=== PATIENT | male | born 1970 | race Caucasian/White ===

== ENCOUNTER 2022-04-21 15:39 | Observation (INO) | payer BC, SELFPAY ==
--- NOTE | ~2022-04-21 | CT_ITS ---
EXAMINATION: CT ANGIOGRAM OF THE CHEST WITH AND WITHOUT CONTRAST (CT PULMONARY ANGIOGRAM FOR PE) CLINICAL INFORMATION: Reason for Exam sob?PE COMPARISON: None TECHNIQUE: Prior to contrast administration, noncontrast localization images were obtained. Subsequently, multidetector volumetric imaging was performed from the thoracic inlet to below the diaphragms following the administration of 65 mL Omnipaque 350 intravenous contrast. No contrast reaction reported Sagittal, coronal, and MIP oblique sagittal reformatted images were obtained on the CT workstation, uploaded to PACS, and reviewed. This CT examination was performed using dose optimization techniques as appropriate, variously including the following: *Automated exposure control *Adjustment of mA and/or kV according to patient size (this includes techniques or standardized protocols for targeted exams where dose is matched to indication/reason for exam; i.e. extremities or head) *Use of iterative reconstruction technique Total exam dose-length product 340 mGy-cm FINDINGS: QUALITY OF STUDY/CONTRAST BOLUS: Satisfactory. PULMONARY ARTERIES: No central or segmental pulmonary emboli. THORACIC AORTA: No aneurysm or dissection. LUNG: A few patchy, peripheral nodular foci of airspace consolidation are evident in the lungs, most notably in the peripheral, lateral aspect of the right upper lobe, though also seen to a lesser extent in the left upper, right lower, and right middle lobes. Dependent atelectasis is present at the lung bases. Central airways are clear. No bronchiectasis. PLEURA: No pleural effusion or pneumothorax. MEDIASTINUM: Normal heart size. No pericardial effusion. A right hilar lymph node measures 1.3 cm in short axis, enlarged. No mediastinal lymphadenopathy. No evidence of septal bowing or right heart strain. CHEST WALL/AXILLA: No axillary or internal mammary lymphadenopathy. OSSEOUS STRUCTURES: No acute or suspicious osseous abnormality. UPPER ABDOMEN: Unremarkable. No reflux of contrast into the hepatic veins to suggest elevated right heart pressures. CT/CT angio chest PE protocol IMPRESSION: Small patchy, peripheral nodular foci of consolidation, most notably in the right upper lobe which are favored to be infectious or inflammatory nature. An enlarged 1.2 cm right hilar lymph node is likely reactive. No evidence of pulmonary embolus. VTE: negative
--- NOTE | ~2022-04-21 | XR_ITS ---
EXAMINATION: XR CHEST CLINICAL INFORMATION: Cough COMPARISON: None TECHNIQUE: Frontal view of the chest was obtained. 4:39 PM FINDINGS: No significant abnormality is noted involving the heart, lungs, mediastinum, bony thorax or soft tissues. XR/XR chest 1V IMPRESSION: Unremarkable examination.
--- NOTE | ~2022-04-21 | US_ITS ---
EXAMINATION: US ABDOMEN COMPLETE CLINICAL INFORMATION: Elevated LFTs. COMPARISON: None TECHNIQUE: Real-time imaging of the abdominal viscera. FINDINGS: PANCREAS: Visualized portions unremarkable. ABDOMINAL AORTA: Visualized portions unremarkable. INFERIOR VENA CAVA: Visualized portions unremarkable. LIVER: Unremarkable. GALLBLADDER: Unremarkable. COMMON BILE DUCT: Normal in caliber measuring 0.3 cm in diameter. RIGHT KIDNEY: 11.2 cm. Unremarkable. LEFT KIDNEY: 11.4 cm. Unremarkable. SPLEEN: 11.2 cm. Unremarkable. FREE FLUID: None. US/US abdomen complete IMPRESSION: Unremarkable abdominal ultrasound.
[2022-04-21 15:45] VITALS: BP 132/87; PULSE 92; RESP 18; TEMP 35.7; O2SAT 100; BMI 25.0
--- NOTE | 2022-04-21 15:45 | ECG_ITS ---
Test Reason : cp Blood Pressure : / mmHG Vent. Rate : 086 BPM Atrial Rate : 086 BPM P-R Int : 140 ms QRS Dur : 076 ms QT Int : 352 ms P-R-T Axes : 032 032 043 degrees QTc Int : 421 ms Normal sinus rhythm Low voltage QRS Borderline ECG No previous ECGs available Referred By: Generic ED Physician Electronically Signed By:DESTINI STARKS
--- NOTE | 2022-04-21 16:11 | PC.NURSE ---
During lab draw-pt reported to triage tech I normally pass out with blood draws . Pt then had an episode lasting of moaning, diaphoresis, and staring off into space in chair lasting 1.5 minutes. No head strike. Moaning in response to painful stimuli. triage tech sent to get primer charger and stretcher. 18g rt fa small petechiae noted on left leg.
[2022-04-21 16:17] LABS: MANUAL DIFF FLAG NO
[2022-04-21 16:18] LABS: Basophils Percent Auto 0.1 % (0-2); Eosinophils Percent Auto 0.6 % (0-4); Hemoglobin 13.1 g/dl (14.0-18.0); Imm Gran Abs Auto 0.02 X10*3/uL (0.00-0.03); Imm Gran Pct Auto 0.3 % (0.0-0.4); Lymphocytes Absolute Auto 0.9 X10*3/uL (1.2-4.9); Lymphocytes Percent Auto 12.5 % (20-40); Mean Corpuscular HGB Conc 34.5 g/dl (31.0-36.0); Mean Corpuscular Hemoglobin 29.8 pg (27.0-33.0); Mean Corpuscular Volume 86.6 fL (80.0-98.0); Mean Platelet Volume 10.4 fL (9.4-12.4); Monocytes Absolute Auto 0.7 X10*3/uL (0.1-1.2); Neutrophils Absolute Auto 5.3 x10*3/uL (2.0-8.3); Neutrophils Percent Auto 76.5 % (45-73); Platelet Count 181 X10*3/uL (160-400); Red Blood Count 4.39 X10*6/uL (4.60-5.80)
[2022-04-21 16:25] LABS: D Dimer High Sensitivity 819 NG/ML
[2022-04-21 16:34] VITALS: PULSE 87
[2022-04-21 16:35] LABS: Alanine Aminotransferase 85 U/L (0-40); Albumin Level 3.5 g/dL (3.5-5.0); Alkaline Phosphatase 151 U/L (39-117); Anion Gap 12 (12-20); Aspartate Amino Transferase 112 U/L (5-37); Bilirubin Total 0.3 mg/dL (0.0-1.0); Blood Urea Nitrogen 16 mg/dL (9-16); Calcium 8.2 mg/dL (8.4-10.2); Carbon Dioxide 26 mmol/L (22-29); Chloride 100 mmol/L (96-108); Creatinine Clr Calc Pharmacy 108.5; Estimated Glomerular Filt Rate > 60; Glucose Random 96 mg/dL (60-115); Potassium 3.9 mmol/L (3.3-5.1); Sodium 134 mmol/L (135-145); Total Protein 6.2 g/dL (6.5-8.0)
[2022-04-21 16:39] LABS: COVID-19 Test Negative (Negative)
[2022-04-21 16:40] LABS: IDNOW Serial# 16C4AD1C; Influenza A Negative (Negative); Influenza B2 Negative (Negative)
[2022-04-21 16:50] LABS: Troponin-I High Sensitivity 124.6 ng/L (<3.5-35.0)
--- NOTE | 2022-04-21 17:01 | ED_ITS ---
HPI - Chest Pain General Chief Complaint: Chest Pain Stated Complaint: Pulmonary embolism? Time Seen by Provider: 04/21/22 16:33 Source: patient Mode of arrival: ambulatory Limitations: no limitations History of Present Illness HPI narrative: Patient with recent diagnosis of a non malignant melanoma status post [place] surgery flu from [place] been sick for last 4-5 days with cough low-grade fever had the labs done yesterday which showed elevated D-dimer and proBNP patient denied any leg pain or significant shortness of breath complaining of cough with mucopurulent phlegm and malaise while coming to the ER sitting on the wheelchair patient passed out patient does not remember the whole event but has the vasov agal syncope episodes in the past no seizure activity noticed patient was incontinent of the urine at that time. At this time patient feels weak with poor oral intake all day afebrile saturating 100% on room air no chest pain or palpitation patient just flew from [place] denies any calf pain or swelling Related Data Home Medications Medication Instructions Recorded Confirmed clobetasol 0.05 % topical ointment 1 ea topical BID 04/21/22 04/21/22 minocycline 100 mg capsule 1 cap PO BID 04/21/22 04/21/22 Allergies Allergy/AdvReac Type Severity Reaction Status Date / Time No Known Allergies Allergy Verified 04/21/22 15:50 Review of Systems Review of Systems: Yes all other systems are reviewed and are negative [facility] Past Medical History Medical History (Updated 04/21/22 @ 21:04 by Stoney Davis MD) Melanoma Social History Social History Patient Tobacco Use Status: Never used Tobacco Use of substances other than those prescribed or required for medical reasons: No Advance Directives: No Advance Directives Information Provided: No Physical Exam Vital Signs: Vital Signs: Last Vital Signs Temp 98 F 04/21/22 18:22 Pulse 91 04/21/22 21:41 Resp 18 04/21/22 21:41 BP 100/64 04/21/22 21:41 Pulse Ox 96 04/21/22 21:41 O2 Del Method 04/21/22 21:41 BMI result Body Mass Index 25.0 Appearance: Alert. Oriented X3. No acute distress. Looks sick Eyes: PERRLA, No Nystagmus ENT: Pharynx normal. Oral Mucosa dry Neck: Normal inspection. Neck supple. CVS: Normal heart rate and rhythm. Pulses normal. Respiratory: No respiratory distress. Equal air entry bilateral, no wheezing/rhonchi occasional crackles posteriorly at bases Abdomen: Soft and nontender. Bowel sounds are present, no mass palpable, no CVA tenderness Skin: Skin warm and dry. Normal skin color. Normal skin turgor. Extremities: No lower extremity edema. No calf tenderness Neuro: Oriented X 3. No motor deficit. No sensory deficit.No cerebellar signs , cranial nerves II-XII intact MDM - Chest Pain MDM Narrative Medical decision making narrative: 21:00 Patient with febrile illness with cough with elevated troponin D-dimer sed rate and CRP with normal WBC count workup showed atypical infiltrate bilateral lung field COVID negative influenza negative elevated troponin and BNP without any findings of heart failure or cardiac ischemia EKG without any ischemic changes. Case discussed with Dr. Collier steel erector apprentice advised not to give any treatment for suspected myocarditis he will see the patient morning. Meanwhile patient received doxycycline Zithromax and cefuroxime in the ER for atypical pneumonia enhance respiratory panel was sent. Patient denies any tick bite or Lyme titer was also sent will admit the patient for further evaluation Lab Data Attestation: I reviewed the patient's lab results. Result diagrams: 04/21/22 16:03 04/21/22 16:03 Labs: Lab Results 04/21/22 04/21/22 04/21/22 Range/Units 16:03 16:03 16:03 WBC 7.0 (4.8-10.8) X10*3/uL RBC 4.39 L (4.60-5.80) X10*6/uL Hgb 13.1 L (14.0-18.0) g/dl Hct 38.0 L (42.0-52.0) % MCV 86.6 (80.0-98.0) fL MCH 29.8 (27.0-33.0) pg MCHC 34.5 (31.0-36.0) g/dl RDW 13.0 (11.0-16.0) % Plt Count 181 (160-400) X10*3/uL MPV 10.4 (9.4-12.4) fL Immature Gran % (Auto) 0.3 (0.0-0.4) % Neut % (Auto) 76.5 H (45-73) % Lymph % (Auto) 12.5 L (20-40) % [place] % (Auto) 10.0 (2-11) % Eos % (Auto) 0.6 (0-4) % Baso % (Auto) 0.1 (0-2) % Lymph # (Auto) 0.9 L (1.2-4.9) X10*3/uL [place] # (Auto) 0.7 (0.1-1.2) X10*3/uL Eos # (Auto) 0.0 (0.0-0.4) X10*3/uL Baso # (Auto) 0.0 (0.0-0.2) X10*3/uL Abs Immat Gran (auto) 0.02 (0.00-0.03) X10*3/uL Absolute Neuts (auto) 5.3 (2.0-8.3) x10*3/uL Absolute Nucleated RBC 0.000 (0.0-0.012) X10*3/uL Nucleated RBC % (auto) 0.0 (0.0-0.2) /100WBC ESR (0-15) MM/HR PT (10.0-13.1) SEC INR (0.9-1.1) APTT (24.1-38.0) SEC D-Dimer High Sensitivty NG/ML Sodium 134 L (135-145) mmol/L Potassium 3.9 (3.3-5.1) mmol/L Chloride 100 (96-108) mmol/L Carbon Dioxide 26 (22-29) mmol/L Anion Gap 12 (12-20) BUN 16 (9-16) mg/dL Creatinine 0.90 (0.5-1.4) mg/dL Estim Creat Clear Calc 108.5 Estimated GFR > 60 Random Glucose 96 (60-115) mg/dL Lactic Acid (0.5-2.0) mmol/L Calcium 8.2 L (8.4-10.2) mg/dL Total Bilirubin 0.3 (0.0-1.0) mg/dL AST 112 H (5-37) U/L ALT 85 H (0-40) U/L Alkaline Phosphatase 151 H (39-117) U/L Troponin I High Sens 124.6 H* (<3.5-35.0) ng/L C-Reactive Protein 26.14 H (< or = 0.50) mg/dL B-Natriuretic Peptide 347 H (<100) pg/mL Total Protein 6.2 L (6.5-8.0) g/dL Albumin 3.5 (3.5-5.0) g/dL COVID-19 (LENA) (Negative) COVID-19 Clin Com Influenza Type A (JAMMIE) (Negative) Influenza Type B (JAMMIE) (Negative) Influenza A & B Note 04/21/22 04/21/22 04/21/22 Range/Units 16:03 16:03 16:03 WBC (4.8-10.8) X10*3/uL RBC (4.60-5.80) X10*6/uL Hgb (14.0-18.0) g/dl Hct (42.0-52.0) % MCV (80.0-98.0) fL MCH (27.0-33.0) pg MCHC (31.0-36.0) g/dl RDW (11.0-16.0) % Plt Count (160-400) X10*3/uL MPV (9.4-12.4) fL Immature Gran % (Auto) (0.0-0.4) % Neut % (Auto) (45-73) % Lymph % (Auto) (20-40) % [place] % (Auto) (2-11) % Eos % (Auto) (0-4) % Baso % (Auto) (0-2) % Lymph # (Auto) (1.2-4.9) X10*3/uL [place] # (Auto) (0.1-1.2) X10*3/uL Eos # (Auto) (0.0-0.4) X10*3/uL Baso # (Auto) (0.0-0.2) X10*3/uL Abs Immat Gran (auto) (0.00-0.03) X10*3/uL Absolute Neuts (auto) (2.0-8.3) x10*3/uL Absolute Nucleated RBC (0.0-0.012) X10*3/uL Nucleated RBC % (auto) (0.0-0.2) /100WBC ESR 74 H (0-15) MM/HR PT 12.0 (10.0-13.1) SEC INR 1.0 (0.9-1.1) APTT 36.2 (24.1-38.0) SEC D-Dimer High Sensitivty 819 NG/ML Sodium (135-145) mmol/L Potassium (3.3-5.1) mmol/L Chloride (96-108) mmol/L Carbon Dioxide (22-29) mmol/L Anion Gap (12-20) BUN (9-16) mg/dL Creatinine (0.5-1.4) mg/dL Estim Creat Clear Calc Estimated GFR Random Glucose (60-115) mg/dL Lactic Acid (0.5-2.0) mmol/L Calcium (8.4-10.2) mg/dL Total Bilirubin (0.0-1.0) mg/dL AST (5-37) U/L ALT (0-40) U/L Alkaline Phosphatase (39-117) U/L Troponin I High Sens (<3.5-35.0) ng/L C-Reactive Protein (< or = 0.50) mg/dL B-Natriuretic Peptide (<100) pg/mL Total Protein (6.5-8.0) g/dL Albumin (3.5-5.0) g/dL COVID-19 (LENA) Negative (Negative) COVID-19 Clin Com See Note Influenza Type A (JAMMIE) (Negative) Influenza Type B (JAMMIE) (Negative) Influenza A & B Note 04/21/22 04/21/22 04/21/22 Range/Units 16:04 16:59 19:48 WBC (4.8-10.8) X10*3/uL RBC (4.60-5.80) X10*6/uL Hgb (14.0-18.0) g/dl Hct (42.0-52.0) % MCV (80.0-98.0) fL MCH (27.0-33.0) pg MCHC (31.0-36.0) g/dl RDW (11.0-16.0) % Plt Count (160-400) X10*3/uL MPV (9.4-12.4) fL Immature Gran % (Auto) (0.0-0.4) % Neut % (Auto) (45-73) % Lymph % (Auto) (20-40) % [place] % (Auto) (2-11) % Eos % (Auto) (0-4) % Baso % (Auto) (0-2) % Lymph # (Auto) (1.2-4.9) X10*3/uL [place] # (Auto) (0.1-1.2) X10*3/uL Eos # (Auto) (0.0-0.4) X10*3/uL Baso # (Auto) (0.0-0.2) X10*3/uL Abs Immat Gran (auto) (0.00-0.03) X10*3/uL Absolute Neuts (auto) (2.0-8.3) x10*3/uL Absolute Nucleated RBC (0.0-0.012) X10*3/uL Nucleated RBC % (auto) (0.0-0.2) /100WBC ESR (0-15) MM/HR PT (10.0-13.1) SEC INR (0.9-1.1) APTT (24.1-38.0) SEC D-Dimer High Sensitivty NG/ML Sodium (135-145) mmol/L Potassium (3.3-5.1) mmol/L Chloride (96-108) mmol/L Carbon Dioxide (22-29) mmol/L Anion Gap (12-20) BUN (9-16) mg/dL Creatinine (0.5-1.4) mg/dL Estim Creat Clear Calc Estimated GFR Random Glucose (60-115) mg/dL Lactic Acid 1.2 (0.5-2.0) mmol/L Calcium (8.4-10.2) mg/dL Total Bilirubin (0.0-1.0) mg/dL AST (5-37) U/L ALT (0-40) U/L Alkaline Phosphatase (39-117) U/L Troponin I High Sens 131.0 H* (<3.5-35.0) ng/L C-Reactive Protein (< or = 0.50) mg/dL B-Natriuretic Peptide (<100) pg/mL Total Protein (6.5-8.0) g/dL Albumin (3.5-5.0) g/dL COVID-19 (LENA) (Negative) COVID-19 Clin Com Influenza Type A (JAMMIE) Negative (Negative) Influenza Type B (JAMMIE) Negative (Negative) Influenza A & B Note See Note ECG Data ECG #1: Attestation: I personally reviewed and interpreted this ECG as follows: Interpretation: Normal sinus rhythm heart rate 86 beats per minute low-voltage QRS no interval normal axis no acute ST-T changes no acute ischemia Critical Care Time Critical Care Time Critical Care Time: Yes Total Critical Care Time: 55 Attestation: I spent 55 minutes of critical care, with interventions, assessments, speaking to patient, consultants, and family. Discharge Plan Discharge Clinical Impression: Pneumonia, Myocarditis, Elevated troponin Patient Disposition: Admitted As Inpatient
[2022-04-21] MEDS: iohexoL 350 MG/ML 100 ML INFUS..BTL IV (17:26)
[2022-04-21 17:28] LABS: Lactic Acid 1.2 mmol/L (0.5-2.0)
[2022-04-21 17:43] LABS: B Type Natriuretic Peptide 347 pg/mL (<100)
[2022-04-21] MEDS: cefTRIAXone sodium 1 GM in 0.9 % Sodium Chloride 50 ML IV (17:43)
[2022-04-21] MEDS: 0.9 % Sodium Chloride 1,000 ML 999 ML IV ×2 (17:43→19:27)
[2022-04-21 17:44] VITALS: BP 105/71; PULSE 87; RESP 18; TEMP 37.4; O2SAT 98
[2022-04-21 18:22] VITALS: BP 122/79; PULSE 85; RESP 18; TEMP 36.6; O2SAT 98
[2022-04-21] MEDS: Azithromycin 500 MG in 0.9 % Sodium Chloride 250 ML 125 MG IV (18:45)
[2022-04-21 18:59] LABS: Partial Thromboplastin Time 36.2 SEC (24.1-38.0)
[2022-04-21 19:18] LABS: C Reactive Protein 26.14 mg/dL (< or = 0.50)
[2022-04-21] MEDS: Ketorolac Tromethamine 30 MG/ML VIAL IVPUSH (19:26)
[2022-04-21] MEDS: Acetaminophen 325 MG TABLET 650 MG PO (19:43)
[2022-04-21 19:47] LABS: Erythrocyte Sedimentation Rate 74 MM/HR (0-15)
--- NOTE | 2022-04-21 20:24 | ECG_ITS ---
Test Reason : CHEST PAIN Blood Pressure : / mmHG Vent. Rate : 092 BPM Atrial Rate : 092 BPM P-R Int : 154 ms QRS Dur : 076 ms QT Int : 348 ms P-R-T Axes : 032 022 035 degrees QTc Int : 430 ms Normal sinus rhythm Low voltage QRS Borderline ECG When compared with ECG of 21-APR-2022 15:54, No significant change was found Referred By: Stoney Davis Electronically Signed By:DESTINI STARKS
[2022-04-21] MEDS: methylPREDNISolone Sod Succ 125 MG/2 ML VIAL IVPUSH (21:07)
--- NOTE | 2022-04-21 21:13 | PHA.MEDREC ---
MED REC COMPLETE, NO ISSUES Pharmacy Consult ? Medication Reconciliation Pharmacy has completed the medication reconciliation.
[2022-04-21] MEDS: Doxycycline Hyclate 100 MG in 0.9 % Sodium Chloride 250 ML 166.67 MG IV (21:22)
[2022-04-21 21:41] VITALS: BP 100/64; PULSE 91; RESP 18; O2SAT 96
--- NOTE | 2022-04-21 23:01 | PM.IMHP ---
History of Present Illness Date of Service: 04/21/22 Chief Complaint: cough This is a 51-year-old male with past medical history of non malignant melanoma otherwise no past medical history presents to the hospital with complaints of feeling sick for the past 4-5 days. Patient reports that he just returned from [place] by flight but he has had 4-5 days of cough, low-grade fever in the 99 degrees. He did outpatient workup which showed elevated D-dimer and BNP and therefore was sent to the hospital. Patient denies any chest pain, no abdominal pain nausea or vomiting, no diarrhea constipation, no urinary symptoms. Patient reports no lower extremity 0 pain. He has known numbness tingling or lower extremity or upper extremity weakness. On arrival to the ED patient hemodynamically stable with no significant abnormal vitals Labs are significant for WBC count of 7.0, hemoglobin of 13.1, hematocrit 38.0 ESR of 74 AST of 112, ALT of 85, alk-phos of 151, troponin of 120 for increased to 131 on repeat, BNP of 347, CRP of 26.[address] angiogram showed negative ETA but there is consolidation, most notably in the right upper lobe which was favored to be infectious. EKG showed normal sinus rhythm Given the elevated troponin as well as BNP, cardiology wanted patient to be admitted for further evaluation Review of Systems Review of Systems: Yes all other systems are reviewed and are negative [facility] Medical History (Updated 04/22/22 @ 07:09 by Joy Irwin MD) Melanoma Family History (Updated 04/22/22 @ 07:07 by Joy Irwin MD) Other No family history of coronary artery disease Surgical History (Updated 04/22/22 @ 07:08 by Joy Irwin MD) No pertinent past surgical history Social History Patient Tobacco Use Status: Never used Tobacco Use of substances other than those prescribed or required for medical reasons: No Advance Directives: No Advance Directives Information Provided: No Meds Allergies Allergy/AdvReac Type Severity Reaction Status Date / Time No Known Allergies Allergy Verified 04/22/22 03:00 Home Medications Medication Instructions Recorded Confirmed Last Taken Type clobetasol 0.05 % topical ointment 1 ea topical BID 04/21/22 04/21/22 Unknown History minocycline 100 mg capsule 1 cap PO BID 04/21/22 04/21/22 04/21/22 History Physical Exam Vital Signs and Narrative: Vital Signs: Last Vital Signs Temp 98 F 04/21/22 18:22 Pulse 91 04/21/22 21:41 Resp 18 04/21/22 21:41 BP 100/64 04/21/22 21:41 Pulse Ox 96 04/21/22 21:41 O2 Del Method 04/21/22 21:41 BMI result Body Mass Index 25.0 Const: General: cooperative and no acute distress Orientation/consciousness: patient oriented x3 Eyes: General: appearance normal, both eyes and all related structures Pupils: Equal, round and reactive pupils present Resp: Other: crackles on the right Effort & Inspection: normal respiratory effort Cardio: Rate: regular rate Rhythm: regular rhythm GI: Palpation (GI): Soft to palpation Auscultation: normal bowel sounds Skin: General skin exam: no rashes or lesions noted Neuro: General: patient oriented x3 Cranial nerves: Yes Equal, round and reactive pupils present Cognition (Neuro): normal cognition Extrem: General: Yes normal to inspection and Yes no pedal edema Results Labs CBC and Chem 7: 04/21/22 16:03 04/21/22 16:03 Labs: Laboratory Results - last 24 hr 04/21/22 04/21/22 04/21/22 16:03 16:03 16:03 MCV 86.6 MCH 29.8 MCHC 34.5 RDW 13.0 Plt Count 181 MPV 10.4 Immature Gran % (Auto) 0.3 Neut % (Auto) 76.5 H Lymph % (Auto) 12.5 L [place] % (Auto) 10.0 Eos % (Auto) 0.6 Baso % (Auto) 0.1 Lymph # (Auto) 0.9 L [place] # (Auto) 0.7 Eos # (Auto) 0.0 Baso # (Auto) 0.0 Abs Immat Gran (auto) 0.02 Absolute Neuts (auto) 5.3 Absolute Nucleated RBC 0.000 Nucleated RBC % (auto) 0.0 ESR PT INR APTT D-Dimer High Sensitivty Anion Gap 12 Estim Creat Clear Calc 108.5 Estimated GFR > 60 Random Glucose 96 Lactic Acid Calcium 8.2 L Total Bilirubin 0.3 AST 112 H ALT 85 H Alkaline Phosphatase 151 H Troponin I High Sens 124.6 H* C-Reactive Protein 26.14 H B-Natriuretic Peptide 347 H Total Protein 6.2 L Albumin 3.5 COVID-19 (LENA) COVID-19 Clin Com Influenza Type A (JAMMIE) Influenza Type B (JAMMIE) Influenza A & B Note 04/21/22 04/21/22 04/21/22 16:03 16:03 16:03 MCV MCH MCHC RDW Plt Count MPV Immature Gran % (Auto) Neut % (Auto) Lymph % (Auto) [place] % (Auto) Eos % (Auto) Baso % (Auto) Lymph # (Auto) [place] # (Auto) Eos # (Auto) Baso # (Auto) Abs Immat Gran (auto) Absolute Neuts (auto) Absolute Nucleated RBC Nucleated RBC % (auto) ESR 74 H PT 12.0 INR 1.0 APTT 36.2 D-Dimer High Sensitivty 819 Anion Gap Estim Creat Clear Calc Estimated GFR Random Glucose Lactic Acid Calcium Total Bilirubin AST ALT Alkaline Phosphatase Troponin I High Sens C-Reactive Protein B-Natriuretic Peptide Total Protein Albumin COVID-19 (LENA) Negative COVID-19 Clin Com See Note Influenza Type A (JAMMIE) Influenza Type B (JAMMIE) Influenza A & B Note 04/21/22 04/21/22 04/21/22 16:04 16:59 19:48 MCV MCH MCHC RDW Plt Count MPV Immature Gran % (Auto) Neut % (Auto) Lymph % (Auto) [place] % (Auto) Eos % (Auto) Baso % (Auto) Lymph # (Auto) [place] # (Auto) Eos # (Auto) Baso # (Auto) Abs Immat Gran (auto) Absolute Neuts (auto) Absolute Nucleated RBC Nucleated RBC % (auto) ESR PT INR APTT D-Dimer High Sensitivty Anion Gap Estim Creat Clear Calc Estimated GFR Random Glucose Lactic Acid 1.2 Calcium Total Bilirubin AST ALT Alkaline Phosphatase Troponin I High Sens 131.0 H* C-Reactive Protein B-Natriuretic Peptide Total Protein Albumin COVID-19 (LENA) COVID-19 Clin Com Influenza Type A (JAMMIE) Negative Influenza Type B (JAMMIE) Negative Influenza A & B Note See Note Imaging Radiologist's Impressions: Impressions Chest X-Ray 04/21/22 16:48 IMPRESSION: Unremarkable examination. Chest CTA 04/21/22 17:42 IMPRESSION: Small patchy, peripheral nodular foci of consolidation, most notably in the right upper lobe which are favored to be infectious or inflammatory nature. An enlarged 1.2 cm right hilar lymph node is likely reactive. No evidence of pulmonary embolus. VTE: negative Assessment and Plan (1) Pneumonia: Status: Acute (2) Elevated troponin: Status: Acute (3) Elevated brain natriuretic peptide (BNP) level: Status: Acute Plan 51-year-old male with no significant past medical history of presents to the hospital with cough found to have pneumonia as well as elevated troponin # acute pneumonia - community-acquired - will treat with IV antibiotics - follow cultures # elevated troponin - no EKG changes, no chest pain - concern for possible myocarditis? - cardiology was consulted by ED physician, recommends admission for further evaluation - will obtain echocardiogram # elevated BNP - no evidence of volume overload - echocardiogram - cardiology consult DVT prophylaxis: Early ambulation Quality Stroke Does the patient have a stroke diagnosis?: No VTE Prior VTE?: No VTE Risk Level:: Medical - low VTE Device Contraindication: Treatment Not Indicated VTE Drug Contraindication: Treatment Not Indicated
[2022-04-21] MEDS: 0.9 % Sodium Chloride Flush 3 ML SYRINGE IVFLUSH (23:15)
[2022-04-22 02:00] VITALS: BP 114/75; PULSE 73; RESP 15; TEMP 36.8; O2SAT 96
[2022-04-22 06:00] VITALS: BMI 25.6
--- NOTE | 2022-04-22 07:00 | CA_ITS ---
Transthoracic Echocardiogram Patient (Last, First, Middle): Floyd Rodgers, Gender: Male Date of : 1970 Age: 51 Procedure Date: 04/22/2022 Procedure Type: Transthoracic Echocardiogram Location: ER Height: 185.42 cm Weight: 86.18 kg BSA: 2.11 m2 Heart Rate: bpm BP: 118 / 73 mmHg Chart Changer: Referring MD: Joy Irwin MD Symptoms: CHF ? , elevated trop Study Quality: Good ECG Rhythm: Sinus Conclusions: - The left ventricular systolic function is low normal. The visually estimated ejection fraction is between 50-55%. - No obvious valvular pathology seen on this study. Findings Procedure Information Contrast agent, definity, is being given per protocol without apparent complications. Left Ventricle Normal left ventricular cavity size. There is mildly increased left ventricular wall thickness. The left ventricular systolic function is low normal. The visually estimated ejection fraction is between 50-55%. There is no evidence of regional wall motion abnormalities. Diastolic function is normal for age. Right Ventricle Normal right ventricular cavity size and systolic function. Atria Both atria are normal in size. Aortic Valve There is a normal trileaflet aortic valve. There is no aortic valve stenosis. There is no aortic valve regurgitation. Mitral Valve The mitral valve appears normal. There is trace mitral valve regurgitation. There is no mitral valve stenosis. Pulmonic Valve The pulmonic valve is likely normal. Tricuspid Valve There is trace tricuspid valve regurgitation. The pulmonary artery systolic pressure is normal. Great Vessels The aortic annulus, sinuses of valsalva, and asc aorta are normal in size. Venous The inferior vena cava is normal in size and collapses greater than 50% with inspiration. Pericardium/Pleural There is no evidence of pericardial effusion. Prior Study Comparison No prior study available for comparison. Recommendations, Care & Conclusions No obvious valvular pathology seen on this study. Measurements 2D Linear Measurements IVSd: 1.12 0.6-0.9/0.6-1.0 cm LVIDd: 4.69 3.9-5.3/4.2-5.9 cm LVIDd Index: 2.22 2.4-3.2/2.2-3.1 cm/m2 LVIDs: 3.16 2.0-3.6 cm LVPWd: 1.13 0.7-1.1 cm Ao Root: 3.80 2.1-3.5 cm LA Diam: 3.40 2.7-3.8/3.0-4.0 cm LAIDs Index: 1.61 1.5-2.3 cm/m2 LV Mass: 240.34 67-162/88-224 g LV Mass Index: 113.90 43-95/49-115 g/m2 LVOT Diam: 2.30 3.0+(-)1.3 cm 2D Systolic Function EF 4C: 55.70 >55% EF 2C: 57.60 >55% EF BiP: 54.80 >55% Mitral Valve MV Pk E: 0.83 MV PK A: 0.94 MV Decel Time: 139.00 E/A: 0.90 E'Lateral: 8.70 E'Medial: 8.16 E/E' Med: 10.20 E/E' Lat: 9.60 PHT: 41.00 MVA PHT: 5.37 Decel [place]: 5.99 Aortic Valve AoV Pk Luke: 1.31 AoV Mn Luke: 0.91 AoV VTI: 0.31 AoV Pk Grad: 7.00 Aov Mn Grad: 4.00 AYLIN Cont.VTI: 3.05 LVOT LVOT Pk Luke: 0.98 LVOT Mn Luke: 0.69 LVOT VTI: 0.23 LVOT Pk Grad: 4.00 LVOT Mn Grad: 2.00 LVOT Diam: 2.30 LVOT Area: 4.15 Diastolic Function MV Pk E: 0.83 MV Pk A: 0.94 E/A: 0.90 E'Medial: 8.16 E/E' Med: 10.20 E' Laterial: 8.70 E/E' Lat: 9.60 Right Ventricle TAPSE (mm): 28.00 TVS' Luke: 12.00 Tricuspid Valve TR Pk Luke: 2.22 TR Pk Grad: 20.00 RA Press: 3.00 RVSP: 23.00 Great Vessels Aorta Ao Root-2D: 3.80 2.0-3.7 cm Ao Asc: 3.30 2.1-3.4 cm Pulmonary Valve PV Pk Luke: 0.99 Peak PV Grad: 4.00 Updated in Other Vendor System with Status of Final Matty Collier MD electronically signed on 04/22/2022 1:55:45 PM with status of Final
[2022-04-22 07:25] LABS: MANUAL DIFF FLAG NO
[2022-04-22 07:27] LABS: Basophils Percent Auto 0.2 % (0-2); Hematocrit 37.1 % (42.0-52.0); Hemoglobin 12.9 g/dl (14.0-18.0); Imm Gran Abs Auto 0.02 X10*3/uL (0.00-0.03); Imm Gran Pct Auto 0.3 % (0.0-0.4); Lymphocytes Absolute Auto 0.6 X10*3/uL (1.2-4.9); Lymphocytes Percent Auto 10.1 % (20-40); Mean Corpuscular HGB Conc 34.8 g/dl (31.0-36.0); Mean Corpuscular Hemoglobin 30.2 pg (27.0-33.0); Mean Corpuscular Volume 86.9 fL (80.0-98.0); Mean Platelet Volume 10.3 fL (9.4-12.4); Monocytes Absolute Auto 0.2 X10*3/uL (0.1-1.2); Monocytes Percent Auto 2.4 % (2-11); Neutrophils Absolute Auto 5.4 x10*3/uL (2.0-8.3); Platelet Count 179 X10*3/uL (160-400); Red Blood Count 4.27 X10*6/uL (4.60-5.80); Red Cell Distribution Width 13.2 % (11.0-16.0); White Blood Count 6.2 X10*3/uL (4.8-10.8)
[2022-04-22 07:41] LABS: Anion Gap 13 (12-20); Blood Urea Nitrogen 15 mg/dL (9-16); Carbon Dioxide 20 mmol/L (22-29); Chloride 108 mmol/L (96-108); Creatinine Clr Calc Pharmacy 123.6; Estimated Glomerular Filt Rate > 60; Glucose Random 159 mg/dL (60-115); Potassium 4.2 mmol/L (3.3-5.1); Sodium 137 mmol/L (135-145)
[2022-04-22] MEDS: 0.9 % Sodium Chloride Flush 3 ML SYRINGE IVFLUSH ×3 (07:52→23:56)
[2022-04-22 08:39] LABS: Alanine Aminotransferase 117 U/L (0-40); Albumin Level 3.2 g/dL (3.5-5.0); Alkaline Phosphatase 209 U/L (39-117); Aspartate Amino Transferase 110 U/L (5-37); Bilirubin Direct 0.2 mg/dL (0.0-0.5); Bilirubin Total 0.7 mg/dL (0.0-1.0); Total Protein 5.8 g/dL (6.5-8.0)
--- NOTE | 2022-04-22 09:59 | PM.CNCAR ---
History of Present Illness History of Present Illness Date of Service: 04/22/22 Chief complaint: pneumonia, elevated inflammatory markers Narrative: This is a cardiology consultation regarding elevated troponins. Patient does not have any known cardiac issues. No history of any coronary diseas,e myocardial infarction or cardiomyopathy or in fact anything cardiac related in the past. He lives in [place] and came here to visit his mother. Even before he started, he was not feeling good and was having some fevers. Then apparently, he had some outpatient test which showed D-dimer send BNP which were abnormal and hence he was sent here. He has cough and whenever he coughs, he gets pleuritic chest pains. However, he does not have any anginal-type symptoms. Some tiredness and exertion from the fever itself. Some labored breathing. While being worked up in the ER, he also had elevated troponins. Hence thought to have possibly myocarditis. Subsequently admitted. Overall, feverish and has constitutional symptoms and pleuritic chest pain from cough but otherwise feels okay. Review of Systems Review of Systems: Yes all other systems are reviewed and are negative Constitutional: Constitutional: Reports as per HPI, Reports fatigue, Reports fever(s) and Reports weakness Eyes: Eyes: Reports as per HPI ENT: Reports as per HPI Cardiovascular: Cardiovascular: Reports as per HPI, Denies acrocyanosis, Denies cool extremities, Denies chest pain, Denies leg edema, Denies lightheadedness, Denies palpitations and Reports dyspnea on exertion Respiratory: Respiratory: Reports as per HPI, Reports no additional respiratory complaints, Reports cough, Reports pain with cough and Reports dyspnea on exertion Gastrointestinal: Gastrointestinal: Reports as per HPI and Reports no additional gastrointestinal complaints Genitourinary: Genitourinary: Reports no additional male genitourinary complaints and Reports as per HPI Musculoskeletal: Musculoskeletal: Reports no additional musculoskeletal complaints and Reports as per HPI Integumentary/Breasts: Skin/Breast: Reports system reviewed and no additional complaints, except as docu Neurologic: Reports system reviewed and no additional complaints, except as documented, Reports as per HPI and Reports weakness Psychiatric: Psychiatric: Reports no additional psychiatric complaints and Reports as per HPI Endocrine: Endocrine: Reports no additional endocrine complaints, Reports as per HPI, Reports fatigue and Denies palpitations Hematologic/Lymphatic: Hematologic/Lymphatic: Reports no additional hematologic/lymphatic complaints and Reports as per HPI Allergic/Immunologic: Allergic/Immunologic: Reports no additional allergic/immunologic complaints and Reports as per [facility] Past Medical History Medical History (Updated 04/22/22 @ 07:09 by Joy Irwin MD) Melanoma Family History Family History (Updated 04/22/22 @ 10:04 by Matty Collier MD) Father Myocardial infarct Surgical History Surgical History (Updated 04/22/22 @ 07:08 by Joy Irwin MD) No pertinent past surgical history Social History Social History Patient Tobacco Use Status: Never used Tobacco Use of substances other than those prescribed or required for medical reasons: No Advance Directives: No Advance Directives Information Provided: No Meds Allergies Allergy/AdvReac Type Severity Reaction Status Date / Time No Known Allergies Allergy Verified 04/22/22 03:00 Active Medications: Current Medications Acetaminophen (Acetaminophen 325 Mg Tablet) 650 mg PO Q6H PRN PRN Reason: Pain, Mild (Pain Scale 1-3) Benzonatate (Benzonatate 100 Mg Capsule) 100 mg PO TID PRN PRN Reason: Cough Docusate Sodium (Docusate Sodium 100 Mg Capsule) 100 mg PO DAILY PRN PRN Reason: Constipation Ceftriaxone Sodium 1 gm/ (Sodium Chloride) 50 mls @ 100 mls/hr IV Q24H NESTOR Azithromycin 500 mg/ Sodium (Chloride) 250 mls @ 125 mls/hr IV Q24H NESTOR Ondansetron HCl (Ondansetron Hcl 4 Mg/2 Ml Vial) 4 mg IVPUSH Q8H PRN PRN Reason: Nausea and Vomiting Sodium Chloride (0.9 % Sodium Chloride Flush 3 Ml Syringe) 3 ml IVFLUSH QSHIFT [facility] Last Admin: 04/22/22 07:52 Dose: 3 ml Home Medications Medication Instructions Recorded Confirmed Last Taken Type clobetasol 0.05 % topical ointment 1 ea topical BID 04/21/22 04/21/22 Unknown History minocycline 100 mg capsule 1 cap PO BID 04/21/22 04/21/22 04/21/22 History Physical Exam Vital Signs: Vital Signs: Last Vital Signs Temp 98.2 F 04/22/22 02:00 Pulse 73 04/22/22 02:00 Resp 15 04/22/22 02:00 BP 114/75 04/22/22 02:00 Pulse Ox 96 04/22/22 02:00 O2 Del Method 04/22/22 02:00 BMI result Body Mass Index 25.0 Const: General: cooperative, comfortable, no acute distress, well developed, alert, awake, Physically active, ill appearing and tired appearing Orientation/consciousness: patient oriented x3 HEENT: Other: Unremarkable Head: Yes normal to inspection Neck: Neck: Yes normal visual inspection Chest: Chest palpation & inspection: normal inspection of the chest Resp: Other: Minimal crackles. Cardio: Palpation: normal PMI Heart sounds: S1 normal heart sound present, S2 normal heart sound present, no gallops, no murmurs and no rubs GI: Palpation (GI): Soft to palpation Back/Spine/Pelvis: Other: unremarkable Skin: General skin exam: no rashes or lesions noted Neuro: General: patient oriented x3 Extrem: General: Yes normal to inspection Psych: Mental Status: mental status grossly normal Objective Labs and Meds Result diagrams: 04/22/22 07:20 04/22/22 07:20 Lab results: Laboratory Results - last 24 hr 04/21/22 04/21/22 04/21/22 16:03 16:03 16:03 WBC 7.0 RBC 4.39 L Hgb 13.1 L Hct 38.0 L MCV 86.6 MCH 29.8 MCHC 34.5 RDW 13.0 Plt Count 181 MPV 10.4 Immature Gran % (Auto) 0.3 Neut % (Auto) 76.5 H Lymph % (Auto) 12.5 L [place] % (Auto) 10.0 Eos % (Auto) 0.6 Baso % (Auto) 0.1 Lymph # (Auto) 0.9 L [place] # (Auto) 0.7 Eos # (Auto) 0.0 Baso # (Auto) 0.0 Abs Immat Gran (auto) 0.02 Absolute Neuts (auto) 5.3 Absolute Nucleated RBC 0.000 Nucleated RBC % (auto) 0.0 ESR PT INR APTT D-Dimer High Sensitivty Sodium 134 L Potassium 3.9 Chloride 100 Carbon Dioxide 26 Anion Gap 12 BUN 16 Creatinine 0.90 Estim Creat Clear Calc 108.5 Estimated GFR > 60 Random Glucose 96 Lactic Acid Calcium 8.2 L Total Bilirubin 0.3 Direct Bilirubin AST 112 H ALT 85 H Alkaline Phosphatase 151 H Troponin I High Sens 124.6 H* C-Reactive Protein 26.14 H B-Natriuretic Peptide 347 H Total Protein 6.2 L Albumin 3.5 COVID-19 (LENA) COVID-19 Clin Com Influenza Type A (JAMMIE) Influenza Type B (JAMMIE) Influenza A & B Note 04/21/22 04/21/22 04/21/22 16:03 16:03 16:03 WBC RBC Hgb Hct MCV MCH MCHC RDW Plt Count MPV Immature Gran % (Auto) Neut % (Auto) Lymph % (Auto) [place] % (Auto) Eos % (Auto) Baso % (Auto) Lymph # (Auto) [place] # (Auto) Eos # (Auto) Baso # (Auto) Abs Immat Gran (auto) Absolute Neuts (auto) Absolute Nucleated RBC Nucleated RBC % (auto) ESR 74 H PT 12.0 INR 1.0 APTT 36.2 D-Dimer High Sensitivty 819 Sodium Potassium Chloride Carbon Dioxide Anion Gap BUN Creatinine Estim Creat Clear Calc Estimated GFR Random Glucose Lactic Acid Calcium Total Bilirubin Direct Bilirubin AST ALT Alkaline Phosphatase Troponin I High Sens C-Reactive Protein B-Natriuretic Peptide Total Protein Albumin COVID-19 (LENA) Negative COVID-19 Clin Com See Note Influenza Type A (JAMMIE) Influenza Type B (JAMMIE) Influenza A & B Note 04/21/22 04/21/22 04/21/22 16:04 16:59 19:48 WBC RBC Hgb Hct MCV MCH MCHC RDW Plt Count MPV Immature Gran % (Auto) Neut % (Auto) Lymph % (Auto) [place] % (Auto) Eos % (Auto) Baso % (Auto) Lymph # (Auto) [place] # (Auto) Eos # (Auto) Baso # (Auto) Abs Immat Gran (auto) Absolute Neuts (auto) Absolute Nucleated RBC Nucleated RBC % (auto) ESR PT INR APTT D-Dimer High Sensitivty Sodium Potassium Chloride Carbon Dioxide Anion Gap BUN Creatinine Estim Creat Clear Calc Estimated GFR Random Glucose Lactic Acid 1.2 Calcium Total Bilirubin Direct Bilirubin AST ALT Alkaline Phosphatase Troponin I High Sens 131.0 H* C-Reactive Protein B-Natriuretic Peptide Total Protein Albumin COVID-19 (LENA) COVID-19 Clin Com Influenza Type A (JAMMIE) Negative Influenza Type B (JAMMIE) Negative Influenza A & B Note See Note 04/22/22 04/22/22 07:20 07:20 WBC 6.2 RBC 4.27 L Hgb 12.9 L Hct 37.1 L MCV 86.9 MCH 30.2 MCHC 34.8 RDW 13.2 Plt Count 179 MPV 10.3 Immature Gran % (Auto) 0.3 Neut % (Auto) 87.0 H Lymph % (Auto) 10.1 L [place] % (Auto) 2.4 Eos % (Auto) 0.0 Baso % (Auto) 0.2 Lymph # (Auto) 0.6 L [place] # (Auto) 0.2 Eos # (Auto) 0.0 Baso # (Auto) 0.0 Abs Immat Gran (auto) 0.02 Absolute Neuts (auto) 5.4 Absolute Nucleated RBC 0.000 Nucleated RBC % (auto) 0.0 ESR PT INR APTT D-Dimer High Sensitivty Sodium 137 Potassium 4.2 Chloride 108 Carbon Dioxide 20 L Anion Gap 13 BUN 15 Creatinine 0.79 Estim Creat Clear Calc 123.6 Estimated GFR > 60 Random Glucose 159 H D Lactic Acid Calcium 8.0 L Total Bilirubin 0.7 Direct Bilirubin 0.2 AST 110 H ALT 117 H Alkaline Phosphatase 209 H D Troponin I High Sens C-Reactive Protein B-Natriuretic Peptide Total Protein 5.8 L Albumin 3.2 L COVID-19 (LENA) COVID-19 Clin Com Influenza Type A (JAMMIE) Influenza Type B (JAMMIE) Influenza A & B Note ECG Interpretation: EKG with sinus rhythm at 86/Min; no significant ST-T changes; low-voltage QRS complexes. Repeat EKG is similar. Imaging Radiologist's impression: Impressions Chest X-Ray 04/21/22 16:48 IMPRESSION: Unremarkable examination. Chest CTA 04/21/22 17:42 IMPRESSION: Small patchy, peripheral nodular foci of consolidation, most notably in the right upper lobe which are favored to be infectious or inflammatory nature. An enlarged 1.2 cm right hilar lymph node is likely reactive. No evidence of pulmonary embolus. VTE: negative Assessment and Plan (1) Myocarditis: Status: Acute (2) Elevated troponin: Status: Acute (3) Elevated brain natriuretic peptide (BNP) level: Status: Acute Plan Pertinent data reviewed. High sensitivity troponins are 124 and 131. Cardiac BNP 347. ESR and CRP are elevated. LFTs are also abnormal. Chest CT reported to have pulmonary consolidation from infectious or inflammatory nature. Reactive lymph node. No pulmonary embolism. Overall, elevated cardiac BNP and troponins could be from myocarditis. He has likely some underlying infection viral or otherwise but not yet identified. No specific management for the myocarditis itself. Treatment should be focused on the underlying cause of infection. Otherwise he will need echocardiogram. Will try to see if sales operations assistant refrigeration service technician is able to come. If not, possibly Sunday if he still in the hospital. Procedures Date of Service Date of Service: 04/22/22
--- NOTE | 2022-04-22 10:20 | PC.NURSE ---
this web content writer assumed care of this pt at 1015. pt alert and oriented, vss. pt transferred to overflow unit with his mother at his bedside.
[2022-04-22 11:20] VITALS: BP 118/73; PULSE 82; RESP 14; O2SAT 95
--- NOTE | 2022-04-22 11:43 | MHC.CM.PN ---
Patient [place] out of state and is visiting here. He is fully independent and lives in his home w/his and children. No prior services or nor equipment. Drives. At time of D/C readiness, plan is to return to family he is visiting via family. CM to follow.
--- NOTE | 2022-04-22 12:01 | PC.NURSE ---
abdominal ultrasound will be done later this afternoon because pt ate breakfast. Dr. Irwin simeon.
[2022-04-22 14:10] LABS: C Reactive Protein 23.83 mg/dL (< or = 0.50)
[2022-04-22] MEDS: Acetaminophen 325 MG TABLET 650 MG PO (15:26)
[2022-04-22 16:00] VITALS: BP 126/78; PULSE 90; RESP 20; TEMP 36.3; O2SAT 96
--- NOTE | 2022-04-22 16:08 | HO.PM.IMPN ---
Subjective Subjective Date of Service: 04/22/22 Interval History: pneumonia ,myocarditis Review of Systems Shortness of breath seems improving He is feeling 6 from at least 5-6 days Physical Exam Vital Signs: Vital Signs: Last Vital Signs Temp 98.2 F 04/22/22 02:00 Pulse 82 04/22/22 11:20 Resp 14 04/22/22 11:20 BP 118/73 04/22/22 11:20 Pulse Ox 95 04/22/22 11:20 O2 Del Method 04/22/22 11:20 BMI result Body Mass Index 25.0 Appearance: Alert.? Oriented X3. cvs: rrr, [id number] , no murmur. res:diminshed breath sounds , has few cracles at bases. abd: no rebound or guarding ,nt, bs present. ext pulses present , no cyanosis . neuro: axo3 , nonfocal. Objective Data Active Medications Acetaminophen (Acetaminophen 325 Mg Tablet) 650 mg PO Q6H PRN PRN Reason: Pain, Mild (Pain Scale 1-3) Last Admin: 04/22/22 15:26 Dose: 650 mg Documented By: NORMAN Benzonatate (Benzonatate 100 Mg Capsule) 100 mg PO TID PRN PRN Reason: Cough Docusate Sodium (Docusate Sodium 100 Mg Capsule) 100 mg PO DAILY PRN PRN Reason: Constipation Ceftriaxone Sodium 1 gm/ (Sodium Chloride) 50 mls @ 100 mls/hr IV Q24H NESTOR Azithromycin 500 mg/ Sodium (Chloride) 250 mls @ 125 mls/hr IV Q24H NESTOR Ondansetron HCl (Ondansetron Hcl 4 Mg/2 Ml Vial) 4 mg IVPUSH Q8H PRN PRN Reason: Nausea and Vomiting Sodium Chloride (0.9 % Sodium Chloride Flush 3 Ml Syringe) 3 ml IVFLUSH QSHIFT NESTOR Last Admin: 04/22/22 07:52 Dose: 3 ml Documented By: JUAN ALBERTO Labs CBC & Chem 7: 04/22/22 07:20 04/22/22 07:20 Labs: Laboratory Results - last 24 hr 04/21/22 04/21/22 04/21/22 16:03 16:03 16:03 MCV 86.6 MCH 29.8 MCHC 34.5 RDW 13.0 Plt Count 181 MPV 10.4 Immature Gran % (Auto) 0.3 Neut % (Auto) 76.5 H Lymph % (Auto) 12.5 L [place] % (Auto) 10.0 Eos % (Auto) 0.6 Baso % (Auto) 0.1 Lymph # (Auto) 0.9 L [place] # (Auto) 0.7 Eos # (Auto) 0.0 Baso # (Auto) 0.0 Abs Immat Gran (auto) 0.02 Absolute Neuts (auto) 5.3 Absolute Nucleated RBC 0.000 Nucleated RBC % (auto) 0.0 ESR PT INR APTT D-Dimer High Sensitivty Anion Gap 12 Estim Creat Clear Calc 108.5 Estimated GFR > 60 Random Glucose 96 Lactic Acid Calcium 8.2 L Total Bilirubin 0.3 Direct Bilirubin AST 112 H ALT 85 H Alkaline Phosphatase 151 H Troponin I High Sens 124.6 H* C-Reactive Protein 26.14 H B-Natriuretic Peptide 347 H Total Protein 6.2 L Albumin 3.5 Respiratory Panel Roy Adenovirus (Rapid PCR) B.pert (TEM-PCR) B.parapertussis DNA PCR C. pneumoniae DNA (PCR) Coronavirus OC43 (PCR) Coronavirus HKU1 (PCR) Coronavirus 229E (PCR) COVID-19 (LENA) COVID-19 Clin Com Coronavirus NL63 (PCR) Human Metapneumovir PCR Influenza Type A (JAMMIE) Influenza A (RT-PCR) Influenza Type B (JAMMIE) Influenza B (RT-PCR) Influenza A & B Note M. pneumoniae (PCR) Parainfluenza 1 (PCR) Parainfluenza 2 (PCR) Parainfluenza 3 (PCR) Parainfluenza 4 (PCR) RSV (PCR) Entero/Rhino (PCR) SARS-CoV-2 RNA (RT-PCR) 04/21/22 04/21/22 04/21/22 16:03 16:03 16:03 MCV MCH MCHC RDW Plt Count MPV Immature Gran % (Auto) Neut % (Auto) Lymph % (Auto) [place] % (Auto) Eos % (Auto) Baso % (Auto) Lymph # (Auto) [place] # (Auto) Eos # (Auto) Baso # (Auto) Abs Immat Gran (auto) Absolute Neuts (auto) Absolute Nucleated RBC Nucleated RBC % (auto) ESR 74 H PT 12.0 INR 1.0 APTT 36.2 D-Dimer High Sensitivty 819 Anion Gap Estim Creat Clear Calc Estimated GFR Random Glucose Lactic Acid Calcium Total Bilirubin Direct Bilirubin AST ALT Alkaline Phosphatase Troponin I High Sens C-Reactive Protein B-Natriuretic Peptide Total Protein Albumin Respiratory Panel Roy Adenovirus (Rapid PCR) B.pert (TEM-PCR) B.parapertussis DNA PCR C. pneumoniae DNA (PCR) Coronavirus OC43 (PCR) Coronavirus HKU1 (PCR) Coronavirus 229E (PCR) COVID-19 (LENA) Negative COVID-19 Clin Com See Note Coronavirus NL63 (PCR) Human Metapneumovir PCR Influenza Type A (JAMMIE) Influenza A (RT-PCR) Influenza Type B (JAMMIE) Influenza B (RT-PCR) Influenza A & B Note M. pneumoniae (PCR) Parainfluenza 1 (PCR) Parainfluenza 2 (PCR) Parainfluenza 3 (PCR) Parainfluenza 4 (PCR) RSV (PCR) Entero/Rhino (PCR) SARS-CoV-2 RNA (RT-PCR) 04/21/22 04/21/22 04/21/22 16:04 16:59 19:48 MCV MCH MCHC RDW Plt Count MPV Immature Gran % (Auto) Neut % (Auto) Lymph % (Auto) [place] % (Auto) Eos % (Auto) Baso % (Auto) Lymph # (Auto) [place] # (Auto) Eos # (Auto) Baso # (Auto) Abs Immat Gran (auto) Absolute Neuts (auto) Absolute Nucleated RBC Nucleated RBC % (auto) ESR PT INR APTT D-Dimer High Sensitivty Anion Gap Estim Creat Clear Calc Estimated GFR Random Glucose Lactic Acid 1.2 Calcium Total Bilirubin Direct Bilirubin AST ALT Alkaline Phosphatase Troponin I High Sens 131.0 H* C-Reactive Protein B-Natriuretic Peptide Total Protein Albumin Respiratory Panel Roy Adenovirus (Rapid PCR) B.pert (TEM-PCR) B.parapertussis DNA PCR C. pneumoniae DNA (PCR) Coronavirus OC43 (PCR) Coronavirus HKU1 (PCR) Coronavirus 229E (PCR) COVID-19 (LENA) COVID-19 Clin Com Coronavirus NL63 (PCR) Human Metapneumovir PCR Influenza Type A (JAMMIE) Negative Influenza A (RT-PCR) Influenza Type B (JAMMIE) Negative Influenza B (RT-PCR) Influenza A & B Note See Note M. pneumoniae (PCR) Parainfluenza 1 (PCR) Parainfluenza 2 (PCR) Parainfluenza 3 (PCR) Parainfluenza 4 (PCR) RSV (PCR) Entero/Rhino (PCR) SARS-CoV-2 RNA (RT-PCR) 04/22/22 04/22/22 04/22/22 06:23 07:20 07:20 MCV 86.9 MCH 30.2 MCHC 34.8 RDW 13.2 Plt Count 179 MPV 10.3 Immature Gran % (Auto) 0.3 Neut % (Auto) 87.0 H Lymph % (Auto) 10.1 L [place] % (Auto) 2.4 Eos % (Auto) 0.0 Baso % (Auto) 0.2 Lymph # (Auto) 0.6 L [place] # (Auto) 0.2 Eos # (Auto) 0.0 Baso # (Auto) 0.0 Abs Immat Gran (auto) 0.02 Absolute Neuts (auto) 5.4 Absolute Nucleated RBC 0.000 Nucleated RBC % (auto) 0.0 ESR PT INR APTT D-Dimer High Sensitivty Anion Gap 13 Estim Creat Clear Calc 123.6 Estimated GFR > 60 Random Glucose 159 H D Lactic Acid Calcium 8.0 L Total Bilirubin 0.7 Direct Bilirubin 0.2 AST 110 H ALT 117 H Alkaline Phosphatase 209 H D Troponin I High Sens C-Reactive Protein 23.83 H B-Natriuretic Peptide Total Protein 5.8 L Albumin 3.2 L Respiratory Panel Roy See note Adenovirus (Rapid PCR) TNP B.pert (TEM-PCR) TNP B.parapertussis DNA PCR TNP C. pneumoniae DNA (PCR) TNP Coronavirus OC43 (PCR) TNP Coronavirus HKU1 (PCR) TNP Coronavirus 229E (PCR) TNP COVID-19 (LENA) COVID-19 Clin Com Coronavirus NL63 (PCR) TNP Human Metapneumovir PCR TNP Influenza Type A (JAMMIE) Influenza A (RT-PCR) TNP Influenza Type B (JAMMIE) Influenza B (RT-PCR) TNP Influenza A & B Note M. pneumoniae (PCR) TNP Parainfluenza 1 (PCR) TNP Parainfluenza 2 (PCR) TNP Parainfluenza 3 (PCR) TNP Parainfluenza 4 (PCR) TNP RSV (PCR) TNP Entero/Rhino (PCR) TNP SARS-CoV-2 RNA (RT-PCR) TNP Assessment and Plan (1) Elevated brain natriuretic peptide (BNP) level: Status: Acute (2) Pneumonia: Status: Acute (3) Myocarditis: Status: Acute (4) Elevated troponin: Status: Acute Plan 51-year-old male with no significant past medical history of presents to the hospital with cough found to have pneumonia as well as elevated troponin # acute pneumonia - community-acquired - will treat with IV antibiotics blood cultures pending also has elevated crp, lymphopenia,cta: Small patchy, peripheral nodular foci of consolidation, most notably in the right upper lobe which are favored to be infectious or inflammatory nature. Id eval # elevated troponin/elevated BNP no evidence of volume overload - no EKG changes, no chest pain - concern for possible myocarditis? crp improivn seen by cardio and added echocardiogram: low ef elevted lft's:mild moniter lft's viral panel hepatitis profile avoid hepatotoxic medications DVT prophylaxis:? Early ambulation inpatient need : Pneumonia, possible myocarditis. Quality Stroke Does the patient have a stroke diagnosis?: No VTE Prior VTE?: No VTE Risk Level:: Medical - low VTE Device Contraindication: Treatment Not Indicated VTE Drug Contraindication: Treatment Not Indicated
[2022-04-22] MEDS: cefTRIAXone sodium 1 GM in 0.9 % Sodium Chloride 50 ML IV (17:48)
[2022-04-22 20:00] VITALS: BP 111/78; PULSE 78; RESP 16; TEMP 36.9; O2SAT 98
[2022-04-22] MEDS: Azithromycin 500 MG in 0.9 % Sodium Chloride 250 ML 125 MG IV (20:02)
[2022-04-23] VITALS: BP 119/70; PULSE 79; RESP 16; TEMP 36.8; O2SAT 98
[2022-04-23 06:00] VITALS: BMI 25.6
[2022-04-23 07:18] LABS: Alanine Aminotransferase 118 U/L (0-40); Albumin Level 3.2 g/dL (3.5-5.0); Alkaline Phosphatase 182 U/L (39-117); Aspartate Amino Transferase 88 U/L (5-37); Bilirubin Direct < 0.2 mg/dL (0.0-0.5); Bilirubin Total 0.3 mg/dL (0.0-1.0); Total Protein 5.8 g/dL (6.5-8.0)
[2022-04-23] MEDS: 0.9 % Sodium Chloride Flush 3 ML SYRINGE IVFLUSH (07:57)
[2022-04-23 08:14] VITALS: BP 123/81; PULSE 78; RESP 16; O2SAT 97
[2022-04-23 08:51] LABS: Adenovirus PCR Not Detected (Not Detect.); Bordetella parapertussis PCR Not Detected (Not Detect.); Bordetella pertussis PCR Not Detected (Not Detect.); Chlamydia pneumoniae PCR Not Detected (Not Detect.); Coronavirus 229E PCR Not Detected (Not Detect.); Coronavirus HKU1 PCR Not Detected (Not Detect.); Coronavirus NL63 PCR Not Detected (Not Detect.); Coronavirus OC43 PCR Not Detected (Not Detect.); Human metapneumovirus PCR Not Detected (Not Detect.); Influenza A PCR Not Detected (Not Detect.); Influenza B PCR Not Detected (Not Detect.); Mycoplasma pneumoniae PCR Not Detected (Not Detect.); Parainfluenza 1 PCR Not Detected (Not Detect.); Parainfluenza 2 PCR Not Detected (Not Detect.); Parainfluenza 3 PCR Not Detected (Not Detect.); Parainfluenza 4 PCR Not Detected (Not Detect.); RSV PCR Not Detected (Not Detect.); Rhino/Enterovirus PCR Not Detected (Not Detect.); SARS-CoV-2 PCR Not Detected (Not Detect.)
--- NOTE | 2022-04-23 10:55 | P.PNCA_ITS ---
Subjective Subjective Date of Service: 04/23/22 Interval history: He states that he feels much better. No specific cardiac complaints. Review of Systems Review of Systems Shortness of breath seems improving He is feeling 6 from at least 5-6 days Yes all other systems are reviewed and are negative Constitutional: Reports as per HPI Eyes: Reports as per HPI Reports as per HPI Cardiovascular: Reports as per HPI, Denies acrocyanosis, Denies cool extremities, Denies chest pain, Denies leg edema, Denies lightheadedness, Denies palpitations and Denies dyspnea Respiratory: Reports as per HPI, Reports no additional respiratory complaints and Denies dyspnea Gastrointestinal: Reports as per HPI and Reports no additional gastrointestinal complaints Genitourinary: Reports no additional male genitourinary complaints and Reports as per HPI Musculoskeletal: Reports no additional musculoskeletal complaints and Reports as per HPI Skin/Breast: Reports system reviewed and no additional complaints, except as docu Reports system reviewed and no additional complaints, except as documented and Reports as per HPI Psychiatric: Reports no additional psychiatric complaints and Reports as per HPI Endocrine: Reports no additional endocrine complaints, Reports as per HPI and Denies palpitations Hematologic/Lymphatic: Reports no additional hematologic/lymphatic complaints and Reports as per HPI Allergic/Immunologic: Reports no additional allergic/immunologic complaints and Reports as per HPI Physical Exam Vital Signs: Last Vital Signs Temp 98.2 F 04/23/22 00:00 Pulse 78 04/23/22 08:14 Resp 16 04/23/22 08:14 BP 123/81 04/23/22 08:14 Pulse Ox 97 04/23/22 08:14 O2 Del Method 04/23/22 08:14 BMI result Body Mass Index 25.6 Const General: comfortable and no acute distress Orientation/consciousness: patient oriented x3 HEENT Other: Unremarkable Head: Yes normal to inspection Neck Neck: Yes normal visual inspection Chest Chest palpation & inspection: normal inspection of the chest Resp Auscultation: crackles Cardio Palpation: normal PMI Heart sounds: S1 normal heart sound present, S2 normal heart sound present, no gallops, no murmurs and no rubs GI Palpation (GI): Soft to palpation Back/Spine/Pelvis Other: unremarkable Skin General skin exam: no rashes or lesions noted Neuro General: patient oriented x3 Extrem General: Yes normal to inspection Psych Mental Status: mental status grossly normal Objective Labs and Meds Result diagrams: 04/22/22 07:20 04/22/22 07:20 Lab results: Laboratory Results - last 24 hr 04/22/22 04/22/22 04/22/22 06:23 07:20 19:03 Total Bilirubin Direct Bilirubin AST ALT Alkaline Phosphatase C-Reactive Protein 23.83 H Total Protein Albumin Respiratory Panel Roy See note See Note Adenovirus (Rapid PCR) TNP Not Detected B.pert (TEM-PCR) TNP Not Detected B.parapertussis DNA PCR TNP Not Detected C. pneumoniae DNA (PCR) TNP Not Detected Coronavirus OC43 (PCR) TNP Not Detected Coronavirus HKU1 (PCR) TNP Not Detected Coronavirus 229E (PCR) TNP Not Detected Coronavirus NL63 (PCR) TNP Not Detected Human Metapneumovir PCR TNP Not Detected Influenza A (RT-PCR) TNP Not Detected Influenza B (RT-PCR) TNP Not Detected M. pneumoniae (PCR) TNP Not Detected Parainfluenza 1 (PCR) TNP Not Detected Parainfluenza 2 (PCR) TNP Not Detected Parainfluenza 3 (PCR) TNP Not Detected Parainfluenza 4 (PCR) TNP Not Detected RSV (PCR) TNP Not Detected Entero/Rhino (PCR) TNP Not Detected SARS-CoV-2 RNA (RT-PCR) TNP Not Detected 04/23/22 06:18 Total Bilirubin 0.3 Direct Bilirubin < 0.2 AST 88 H ALT 118 H Alkaline Phosphatase 182 H C-Reactive Protein Total Protein 5.8 L Albumin 3.2 L Respiratory Panel Roy Adenovirus (Rapid PCR) B.pert (TEM-PCR) B.parapertussis DNA PCR C. pneumoniae DNA (PCR) Coronavirus OC43 (PCR) Coronavirus HKU1 (PCR) Coronavirus 229E (PCR) Coronavirus NL63 (PCR) Human Metapneumovir PCR Influenza A (RT-PCR) Influenza B (RT-PCR) M. pneumoniae (PCR) Parainfluenza 1 (PCR) Parainfluenza 2 (PCR) Parainfluenza 3 (PCR) Parainfluenza 4 (PCR) RSV (PCR) Entero/Rhino (PCR) SARS-CoV-2 RNA (RT-PCR) Imaging Radiologist's impression: Impressions Abdomen Ultrasound 04/22/22 14:22 IMPRESSION: Unremarkable abdominal ultrasound. Progress Note: A&P Assessment and plan (1) Myocarditis: Status: Acute (2) Elevated troponin: Status: Acute (3) Elevated brain natriuretic peptide (BNP) level: Status: Acute Plan Clinically, he seems to be significantly better. Based on elevation of CRP, ESR, some underlying infection but etiology is not clear. Most of the viral panels are so far negative. From the cardiac standpoint, there is elevation of cardiac BNP and high sensitivity troponins. LFTs are also abnormal. Chest CT reported to have pulmonary consolidation from infectious or inflammatory nature. Reactive lymph node. No pulmonary embolism. Echocardiogram with low-normal LVEF but otherwise unremarkable. Overall, it is probably something infectious but not identified yet. Could be while. Cardiac findings could be from myocarditis. Do not believe this is from ACS. No specific management for the myocarditis itself. As the patient is from [place], recommend following up with a ballistician [place] for a follow-up echocardiogram or cardiac MRI in few weeks time. Discussed about this with the patient and significant other at the bedside. All questions answered to satisfaction. Otherwise, management of infection as per hospitalist service. Also discussed with Dr. Gayle. Time Spent With Patient Time: Total time spent is greater than 50% in coordination of care (as documented) at patient's floor/unit and/or counseling patient: 30min. Progress Note: Quality Stroke Does the patient have a stroke diagnosis?: No Procedures Date of Service Date of Service: 04/23/22
--- NOTE | 2022-04-23 11:14 | P.DS_ITS ---
DS: Providers Provider Date of Service: 04/23/22 Date of admission: 04/21/22 22:46 Primary care physician: Unknown Physician Consults: 04/21/22 23:33 Consult to Cardiology Routine Consulting Provider: Matty Collier Reason for consultation: CHF, elevated trop Has provider been notified: No 04/22/22 14:58 Consult to Infectious Diseases Routine Consulting Provider: Melissa Matos Reason for consultation: pneumonia /myocarditis Has provider been notified: No DS: Diagnosis Discharge Diagnosis (1) Myocarditis: Status: Acute (2) Elevated troponin: Status: Acute (3) Elevated brain natriuretic peptide (BNP) level: Status: Acute DS: Summary Hospital Course Hospital Course: 51-year-old male with past medical history of non malignant melanoma otherwise no past medical history presents to the hospital with complaints of feeling sick for the past 4-5 days.? Patient reports that he just returned from [place] by flight but he has had 4-5 days of cough, low-grade fever in the 99 degrees.? He did outpatient workup which showed elevated D-dimer and BNP and therefore was sent to the hospital.? Patient denies any chest pain, no abdominal pain nausea or vomiting, no diarrhea constipation, no urinary symptoms.? Patient reports no lower extremity 0 pain.? He has known numbness tingling or lower extremity or upper extremity weakness. On arrival to the ED patient hemodynamically stable with no significant abnormal vitals Labs are significant for WBC count of 7.0, hemoglobin of 13.1, hematocrit 38.0 ESR of 74 AST of 112, ALT of 85, alk-phos of 151, troponin of 120 for increased to 131 on repeat, BNP of 347, CRP of 26.[address] angiogram showed negative ETA but there is consolidation, most notably in the right upper lobe which was favored to be infectious. EKG showed normal sinus rhythm Given the elevated troponin as well as BNP, cardiology wanted patient to be admitted for further evaluation hospital course: Patient was admitted for pneumonia, also found to have a myocarditis: Started on IV antibiotic for pneumonia seems to be improving significantly-going home with p.o. antibiotics. Sputum could not be obtained since patient has dry cough only. Patient found to have elevated LFTs; possible related to pneumonia -hepatitis and hiv,lyme testing pending which needs to follow-up with PCP , respiratory viral panel -seems negative , blood culture negative at 24 hour. Possible Myocarditis: Currently patient is asymptomatic, echo is EF is slightly low normal range, consider follow-up with Cardiology out patiently as per PCP. Monitor any new cardiac symptoms including chest pain or shortness of breath or any new symptoms-if any new symptoms appear need to be evaluated in nearest emergency room. Above management discussed with the patient in detail length he understand and in agreement with the above plan, time spent 50 minutes and 50% time spent on counseling. Significant findings: As above. Procedures performed: None. Treatment and response: As above. Complications: None. Time Spent with Patient Time attestation: Total time spent providing and/or coordinating discharge services: Discharge coordination time: Greater than 30 minutes Quality: Safe Use of Opioids Does Pt have an Active Cancer Diagnosis on the Problem List?: No Quality: Stroke Does the patient have a stroke diagnosis?: No Physical Exam Vital Signs: Vital Signs: Last Vital Signs Temp 98.2 F 04/23/22 00:00 Pulse 78 04/23/22 08:14 Resp 16 04/23/22 08:14 BP 123/81 04/23/22 08:14 Pulse Ox 97 04/23/22 08:14 O2 Del Method 04/23/22 08:14 BMI result Body Mass Index 25.6 Appearance: Alert.? Oriented X3. cvs: rrr, [id number] , no murmur. res:fair air entry, no rales or wheezing abd: no rebound or guarding ,nt, bs present. ext pulses present , no cyanosis . neuro: axo3 , nonfocal. DS: Data Data Completed and Pending Labs on day of discharge: Laboratory Results - last 24 hr 04/22/22 04/22/22 04/22/22 06:23 07:20 19:03 Total Bilirubin Direct Bilirubin AST ALT Alkaline Phosphatase C-Reactive Protein 23.83 H Total Protein Albumin Respiratory Panel Roy See note See Note Adenovirus (Rapid PCR) TNP Not Detected B.pert (TEM-PCR) TNP Not Detected B.parapertussis DNA PCR TNP Not Detected C. pneumoniae DNA (PCR) TNP Not Detected Coronavirus OC43 (PCR) TNP Not Detected Coronavirus HKU1 (PCR) TNP Not Detected Coronavirus 229E (PCR) TNP Not Detected Coronavirus NL63 (PCR) TNP Not Detected Human Metapneumovir PCR TNP Not Detected Influenza A (RT-PCR) TNP Not Detected Influenza B (RT-PCR) TNP Not Detected M. pneumoniae (PCR) TNP Not Detected Parainfluenza 1 (PCR) TNP Not Detected Parainfluenza 2 (PCR) TNP Not Detected Parainfluenza 3 (PCR) TNP Not Detected Parainfluenza 4 (PCR) TNP Not Detected RSV (PCR) TNP Not Detected Entero/Rhino (PCR) TNP Not Detected SARS-CoV-2 RNA (RT-PCR) TNP Not Detected 04/23/22 06:18 Total Bilirubin 0.3 Direct Bilirubin < 0.2 AST 88 H ALT 118 H Alkaline Phosphatase 182 H C-Reactive Protein Total Protein 5.8 L Albumin 3.2 L Respiratory Panel Roy Adenovirus (Rapid PCR) B.pert (TEM-PCR) B.parapertussis DNA PCR C. pneumoniae DNA (PCR) Coronavirus OC43 (PCR) Coronavirus HKU1 (PCR) Coronavirus 229E (PCR) Coronavirus NL63 (PCR) Human Metapneumovir PCR Influenza A (RT-PCR) Influenza B (RT-PCR) M. pneumoniae (PCR) Parainfluenza 1 (PCR) Parainfluenza 2 (PCR) Parainfluenza 3 (PCR) Parainfluenza 4 (PCR) RSV (PCR) Entero/Rhino (PCR) SARS-CoV-2 RNA (RT-PCR) Preliminary micro results at discharge 04/21/22 16:59 Blood Culture - Preliminary Blood - Venous No growth after 24 hours. 04/21/22 16:59 Blood Culture - Preliminary Blood - Venous No growth after 24 hours. Additional Comments Additional comments: US/US abdomen complete IMPRESSION: Unremarkable abdominal ultrasound. CT/CT angio chest PE protocol IMPRESSION: Small patchy, peripheral nodular foci of consolidation, most notably in the right upper lobe which are favored to be infectious or inflammatory nature. An enlarged 1.2 cm right hilar lymph node is likely reactive. ? No evidence of pulmonary embolus. ? VTE: negative. echo: Conclusions: - The left ventricular systolic function is low normal.? The ? ? visually estimated ejection fraction is between 50-55%.? - No obvious valvular pathology seen on this study.?? Discharge Plan Discharge Patient Disposition: Home, Self-Care Discharge Diagnosis: pneumonia, possible myocarditis , elevated lft's Referrals: Physician,Unknown J [Primary Care Provider] - 1 Week Discharge Medications: New benzonatate 100 mg Capsule 100 mg PO TID PRN (Reason: Cough) Qty: 30 0RF doxycycline hyclate 100 mg tablet 100 mg PO BID Qty: 14 0RF Robitussin Cough-Chest Baldomero DM 5-100 mg/5 mL liquid 10 ml PO Q4-8H PRN (Reason: cough) Qty: 118 0RF cefuroxime axetil 500 mg tablet 500 mg PO BID Qty: 14 0RF Continued minocycline 100 mg capsule 1 cap PO BID Rx Instructions: COMPLETED 1 WEEK, THEN EXTENDED 04/18/22 FOR ANOTHER 10 DAYS clobetasol 0.05 % ointment 1 ea topical BID Rx Instructions: ORDERED 04/18 FOR 2 WEEKS Discharge Orders: Discharge Order (Routine); Ordered 04/23/22 Ordered By: Layne Gayle Diet: Advance to usual diet Activity on Discharge: As tolerated Stand Alone Forms: Patient Portal Discharge page Care Plan Goals: Patient was admitted for pneumonia, also found to have a myocarditis: Started on IV antibiotic for pneumonia seems to be improving significantly-going home with p.o. antibiotics. Sputum could not be obtained since patient has dry cough only. Patient found to have elevated LFTs; possible related to pneumonia -hepatitis and hiv,lyme testing pending which needs to follow-up with PCP , respiratory viral panel -seems negative , blood culture negative at 24 hour. Possible Myocarditis: Currently patient is asymptomatic, echo is EF is slightly low normal range, consider follow-up with Cardiology out patiently as per PCP. seen by cardiology-patient is from [place], recommend following up with a audio video technician locally for a follow-up echocardiogram or cardiac MRI in few weeks time. Monitor any new cardiac symptoms including chest pain or shortness of breath or any new symptoms-if any new symptoms appear need to be evaluated in nearest emergency room. Health Concerns: As above. Plan of Treatment: As above. Assessment: As above.
[2022-04-24 22:13] LABS: Lyme Abs Screen <0.90 index
[2022-04-25 04:03] LABS: HIV AB/AG Nonreactive (Nonreactive); HIV Num 1 0.07 S/CO (0.00-0.99)
[2022-04-25 04:03] LABS: HBS Num1 2.43 mIU/mL (0-7.99); HBc Num1 0.08 S/CO (0.00-0.79); HBsAGNum1 0.32 S/CO (0.00-0.99); Hepatitis B Core Antibody Nonreactive (Nonreactive); Hepatitis B Surface Antigen Negative (Negative); ~HepC Num1 0.18 S/CO (0.00-0.79); ~Hepatitis B Surface Antibody NONREACTIVE (Nonreactive); ~Hepatitis C Antibody Nonreactive (Nonreactive)
[2022-04-26 05:02] LABS: Hepatitis A Antibody IgM 0.12 Index (0-0.79); ~Hepatitis A Antibody IgM Nonreactive (Nonreactive)
== END 2022-04-23 11:46 | disposition home or self-care (01) ==
LOC: HO.ED 22:39 → HO.EDOVER 23:23 → HO.IMC 04-23 08:48
PROVIDERS: Emergency Medicine; Physician Assistant; Admitting Provider Internal Medicine; Emergency Provider Internal Medicine; Visit Provider Internal Medicine
DX: J18.9 Pneumonia, unspecified organism (principal); I40.9 Acute myocarditis, unspecified; R06.02 Shortness of breath; R77.8 Other specified abnormalities of plasma proteins; R05.9 Cough, unspecified; R50.9 Fever, unspecified; R20.0 Anesthesia of skin; K59.00 Constipation, unspecified; R79.89 Other specified abnormal findings of blood chemistry; Z20.822 Contact with and (suspected) exposure to COVID-19; Z79.899 Other long term (current) drug therapy
CPT/HCPCS: 36415; 71045; 71275; 76700; 80048; 80053; 80076; 83605; 83880; 84484; 85025; 85379; 85610; 85652; 85730; 86140; 86617; 86618; 86704; 86706; 86709; 86803; 87040; 87340; 87389; 87502; 87633; 87635; 93005; 93306; 96361; 96365; 96366; 96367; 96375; 99205; 99214; 99219; 99285; J0456; J0696; J1885; J2930; Q9957; Q9967